=== PATIENT | male | born 2000 | race African-American/Black ===

== ENCOUNTER 2021-08-12 11:57 | Emergency (ER) | payer BC, SELFPAY ==
--- NOTE | ~2021-08-12 | XR_ITS ---
EXAMINATION: XR shoulder RT min 2V INDICATION: Right shoulder pain TECHNIQUE: Four views of the right shoulder are submitted. COMPARISON: None FINDINGS: Normal alignment. No fracture. Glenohumeral and acromioclavicular joint spaces are normal. Soft tissues are unremarkable. IMPRESSION: 1. No acute osseous abnormality. Reviewed, dictated and finalized at location A.
[2021-08-12 12:04] VITALS: BP 142/87; PULSE 100; RESP 18; TEMP 36.7; O2SAT 100
--- NOTE | 2021-08-12 12:20 | PC.NURSE ---
Pt states he fell off the couch yesterday and dislocated his shoulder pt, states he attempted to pop it back into place, pt able to ambulate well, A&Ox4
--- NOTE | 2021-08-12 12:45 | ED.UPPEXIN ---
HPI - Extremity Injury (Upper) General Chief Complaint: Extremity Injury, Upper Stated Complaint: possible dislocated shouler Time Seen by Provider: 08/12/21 12:19 Source: patient Mode of arrival: ambulatory Limitations: no limitations History of Present Illness HPI narrative: Patient is a 20-year-old male complaining of right shoulder pain, I dislocated my shoulder , after he fell over trying to reach over for his cat. Patient states that he has a history of shoulder dislocation in the past. Patient denies any other pain or injury. Review of Systems Review of Systems: All systems reviewed & are unremarkable except as noted in HPI and below Constitutional: Constitutional: Denies body ache(s), Denies chills, Denies excessive sweating, Denies fatigue, Denies fever(s), Denies headache(s), Denies lethargy, Denies malaise, Denies weakness and Denies weight loss Eyes: Eyes: Denies blurry vision, Denies change in vision and Denies loss of vision ENT: Denies dizziness, Denies ear discharge, Denies headache(s), Denies lip swelling, Denies epistaxis, Denies nasal congestion, Denies neck pain, Denies throat swelling and Denies tongue swelling Cardiovascular: Cardiovascular: Denies chest pain, Denies chest pain at rest, Denies chest pain with activity, Denies diaphoresis, Denies rapid heart rate, Denies edema, Denies irregular heart rhythm, Denies lightheadedness, Denies palpitations, Denies dyspnea and Denies dyspnea on exertion Respiratory: Respiratory: Denies chest congestion, Denies cough, Denies hemoptysis, Denies dyspnea and Denies dyspnea on exertion Gastrointestinal: Gastrointestinal: Denies abdominal pain, Denies melena, Denies hematochezia, Denies diarrhea, Denies nausea, Denies vomiting and Denies hematemesis Musculoskeletal: Musculoskeletal: Denies abnormal gait, Denies deformity, Denies neck pain and Denies numbness Neurologic: Denies Abnormal speech present, Denies abnormal gait, Denies confusion, Denies dizziness, Denies headache(s), Denies focal weakness, Denies loss of vision, Denies numbness, Denies Other visual disturbances, Denies Sensory deficit (Neuro) and Denies weakness Psychiatric: Psychiatric: Denies confusion, Denies depression, Denies auditory hallucinations, Denies homicidal ideation and Denies suicidal ideation Endocrine: Endocrine: Denies cold intolerance, Denies excessive sweating, Denies fatigue, Denies heat intolerance and Denies palpitations Hematologic/Lymphatic: Hematologic/Lymphatic: Denies easy bleeding and Denies easy bruising Allergic/Immunologic: Allergic/Immunologic: Denies lip swelling, Denies throat swelling and Denies tongue swelling PMFSH Comments Past medical history: Shoulder dislocation Family history: None Social history: Non-smoker, occasional EtOH use, no drug use Exam Const: General: cooperative, healthy appearing, comfortable, no acute distress, well developed, alert and awake; No confusion Orientation/consciousness: oriented to person, oriented to place, oriented to time, patient oriented x3 and No confusion Limitations: no limitations HENMT: Head: normal to inspection, normocephalic and atraumatic Ears: hearing grossly normal bilaterally, TM normal on the right and TM normal on the left General nose exam: Normal external nose present, Normal nares present and No nasal discharge present Face and sinus: normal facial exam Mouth: Yes Normal oral and palatal mucosa present, Yes lip normal, Yes tongue normal and Yes oropharynx normal Throat: posterior oropharynx normal, tonsils normal and uvula midline Eyes: General: appearance normal, both eyes and all related structures Pupils: Equal, round and reactive pupils present EOM: EOMs intact bilaterally Neck: Neck: normal visual inspection, full ROM, no lymphadenopathy and no meningeal signs Chest: Chest palpation & inspection: normal inspection of the chest Resp: Effort & Inspection: normal respiratory effort, able to speak in complete sent
[2021-08-12 12:47] LABS: Basophils Percent Auto 0.3 % (0.2-1.2); Eosinophils Percent Auto 0.6 % (0-4.4); Hematocrit 43.6 % (42.0-52.0); Hemoglobin 14.8 g/dL (14.0-18.0); Immature Granulocyte Absolute 0.01 K/mm3 (0.00-0.031); Immature Granulocyte Percent A 0.1 % (0-0.5); Lymphocytes Absolute Auto 1.77 K/mm3 (0.9-3.2); Lymphocytes Percent Auto 24.3 % (18.3-44.2); Mean Corpuscular HGB Conc 33.9 g/dl (32-36); Mean Corpuscular Hemoglobin 31.2 pg (26-34); Mean Corpuscular Volume 91.8 fl (80-100); Mean Platelet Volume 10.4 fl (7.4-10.4); Monocytes Absolute Auto 0.6 K/mm3 (0.1-0.6); Monocytes Percent Auto 8.5 % (2.6-8.5); Neutrophils Absolute Auto 4.8 K/mm3 (1.3-6.7); Neutrophils Percent Auto 66.2 % (45.5-73.1); Platelet Count Result 362 k/mm3 (150-375); Red Blood Count 4.75 M/mm3 (4.6-6.20); Red Cell Distribution Width 14.5 % (11.5-14.5); White Blood Count 7.3 K/mm3 (4.5-10.0)
[2021-08-12 13:07] LABS: Alanine Aminotransferase 22 U/L (4-50); Alkaline Phosphatase 44 U/L (38-126); Anion Gap 12 mmol/L (8-16); Aspartate Amino Transferase 29 U/L (17-59); Blood Urea Nitrogen 6 mg/dL (9-20); Calcium 9.8 mg/dL (8.4-10.2); Carbon Dioxide 24 mmol/L (22-30); Chloride 104 mmol/L (98-107); Estimated CRCL calculation 156 ml/min; Estimated Glomerular Filt Rate > 60; Glucose 110 mg/dL (65-110); Potassium 3.7 mmol/L (3.4-5.0); Sodium 140 mmol/L (137-145)
--- NOTE | 2021-08-12 13:30 | PC.NURSE ---
Pt ready for discharge educated on results, pt states he is ready for discharge, no acute distress at this time, ambulated well
[2021-08-12 13:31] VITALS: BP 120/88; PULSE 88; RESP 16; O2SAT 100
[2021-08-12 13:31] LABS: Add Urine Microscopic? NO; Appearance Urine Clear (Clear); Bilirubin Urine Negative (Negative); Blood Urine Negative (Negative); Color Urine Yellow (Yellow); Glucose Urine UA Negative (Negative); Ketones Urine Negative (Negative); Leukocyte Esterase Ur Negative LEU/UL (Negative); Nitrate Urine Negative (Negative); Protein Urine Negative (Negative); Urobilinogen Urine Negative mg/dL (<2.0)
--- NOTE | 2021-08-12 13:45 | PC.NURSE ---
Pt wanted to speak with MD again before leaving, doctor educated pt on his injury, MD stated he will provide pt with a sling for support, splint applied, pt feels he has better support
== END 2021-08-12 13:48 | disposition home or self-care (01) ==
PROVIDERS: General Practice; Emergency Provider Emergency Medicine
DX: S46.911A Strain of unspecified muscle, fascia and tendon at shoulder and upper arm level, right arm, initial encounter (principal); W08.XXXA Fall from other furniture, initial encounter
CPT/HCPCS: 36415; 73030; 80053; 81003; 85025; 99283; A4565

== ENCOUNTER 2025-05-11 14:01 | Emergency (ER) | payer BC, SELFPAY ==
--- NOTE | 2025-05-11 14:04 | ED_ITS ---
<Statement entered by Juanjo Rosas, EP SPECIALIST - 05/11/25 14:23> not evaluated at [facility]. Thought this was an ER. HPI - General Adult General Chief complaint: Chest Pain Stated complaint: Chest Pressure/Palpitations Time Seen by Provider: 05/11/25 14:03 Medical Decision Making MDM Narrative Medical decision making narrative: [facility] He thought [facility] was the [facility]. He [facility] Exited facility without exam. Discharge Plan Discharge Patient Language: Turkish Follow-up/Referrals: UNKNOWN,DOCTOR [Non-Staff] -
--- NOTE | 2025-05-11 14:04 | ED.GENADULT ---
HPI - General Adult General Chief complaint: Chest Pain Stated complaint: Chest Pressure/Palpitations Time Seen by Provider: 05/11/25 14:03 Medical Decision Making MDM Narrative Medical decision making narrative: Pt [facility] at [facility]. He thought this was the ER. He did not want to be evaluated at this [facility]. Exited facility without exam. Discharge Plan Discharge Patient Language: Welsh Follow-up/Referrals: UNKNOWN,DOCTOR [Non-Staff] -
--- NOTE | 2025-05-11 14:33 | PC.NURSE ---
Pt left WOBS. Pt did not want to be seen here. States he was just seen at 1:30p.m. today at [facility] and they informed him to get established with A PCP or go to ER if he had any other concerns. Pt states he thought we were a hospital and he wanted to see a primary Dr. for bloodwork. Pt showed me his DC papers from [facility] with prescribed meds.
== END 2025-05-11 14:33 | disposition left against medical advice (07) ==
DX: Z53.21 Procedure and treatment not carried out due to patient leaving prior to being seen by health care provider (principal)
CPT/HCPCS: 99199

== ENCOUNTER 2025-05-14 12:21 | Emergency (ER) | payer BC, SELFPAY ==
[2025-05-14] VITALS (11 sets, daily range): BP systolic 120–169; BP diastolic 80–100; PULSE 69–98; RESP 14–24; TEMP 36.5–36.9; O2SAT 95–100
--- NOTE | ~2025-05-14 | XR_ITS ---
CHEST RADIOGRAPH, PA AND LATERAL CLINICAL HISTORY: chest pain . COMPARISON: None available TECHNIQUE: PA and lateral views of the chest. FINDINGS The cardiomediastinal silhouette is unremarkable. The lungs are clear. IMPRESSION: No focal infiltrate or effusion. Reviewed, dictated and finalized at location A.
--- NOTE | 2025-05-14 12:24 | ECG_ITS ---
Test Date: 2025-05-14 15:28:28 Measurements Intervals [place] Rate: 77 P: 62 CT: 149 QRS: 17 QRSD: 91 T: 31 QT: 361 QTc: 410 Interpretive Statements SINUS RHYTHM LOW QRS VOLTAGE IN PRECORDIAL LEADS [QRS DEFLECTION < 1.0 mV IN CHEST LEADS] Compared to ECG 05/14/2025 12:31:42 NO SIGNIFICANT CHANGES Electronically Signed On 05-15-2025 14:13:20 CDT by Yon Charles M.D.
[2025-05-14 12:55] LABS: Hematocrit 46.0 % (42.0-52.0); Hemoglobin 15.3 g/dL (14.0-18.0); Immature Granulocyte Percent A 0.6 % (0-0.5); Lymphocytes Absolute Auto 2.25 K/mm3 (0.9-3.2); Mean Corpuscular HGB Conc 33.3 g/dl (32-36); Mean Corpuscular Hemoglobin 29.8 pg (26-34); Mean Corpuscular Volume 89.7 fl (80-100); Nucleated Red Blood Cells Absolute Auto 0.000 K/mm3 (0.0-0.012); Nucleated Red Blood Cells Perc 0.0 % (0.0-0.2); Platelet Count Result 439 k/mm3 (150-375); Red Blood Count 5.13 M/mm3 (4.6-6.20); White Blood Count 7.1 K/mm3 (4.5-10.0)
--- NOTE | 2025-05-14 12:59 | ED.CHESTPAIN ---
HPI - Chest Pain General Chief Complaint: Chest Pain Stated Complaint: Chest Tightness Time Seen by Provider: 05/14/25 12:35 Source: patient, RN notes reviewed and old records reviewed Mode of arrival: ambulatory Limitations: no limitations History of Present Illness HPI narrative: This is a 24 year old male who presents for evaluation of chest tightness. He states that for past several weeks he has had intermittent chest tightness. He thinks his tightness occurs after eating food with sodium in it and pastries. He denies having chest tightness now. He also reports his heart rate will slightly elevated. He denies associated fever, chills, cough, shortness of breath. His tightness rocael not radiate. Related Data Allergies Allergy/AdvReac Type Severity Reaction Status Date / Time No Known Allergies Allergy Verified 05/14/25 12:41 PMFSH Past Medical History Medical History (Updated 05/14/25 @ 16:35 by Ally Noel MD) Patient denies medical problems Surgical History Surgical History (Updated 05/14/25 @ 13:04 by Ally Noel MD) No pertinent past surgical history Social History Social History (Updated 05/14/25 @ 13:04 by Ally Noel MD) Smoking status: Never smoker Exam Const: General: no acute distress and alert Nutritional Appearance: well nourished and obese Orientation/consciousness: patient oriented x3 HENMT: Head: normal to inspection Eyes: EOM: EOMs intact bilaterally Chest: Chest palpation & inspection: normal inspection of the chest Resp: Effort & Inspection: normal respiratory effort Auscultation: clear to auscultation bilaterally Cardio: Rate: regular rate Rhythm: regular rhythm Heart sounds: no murmurs GI: GI Palp: Yes Soft to palpation, No Tenderness to palpation present (GI), No Guarding due to palpation present (GI) and No Rigid due to palpation Auscultation: normal bowel sounds Skin: General skin exam: normal color Neuro: General: patient oriented x3 and moves all extremities Extrem: General: normal to inspection Psych: Mental Status: mental status grossly normal Affect: normal affect Course Reevaluation(s) Reevaluation #1: I reviewed with patient that troponin and d dimer are negative. He will need to follow up with PCP Date: 05/14/25 Time: 16:33 Vital Signs Vital signs: Vital Signs Temperature 98.4 F 05/14/25 12:38 Pulse Rate 98 05/14/25 12:38 Respiratory Rate 16 05/14/25 12:38 Blood Pressure 154/100 H 05/14/25 12:38 Pulse Oximetry 100 05/14/25 12:38 Oxygen Delivery Room Air 05/14/25 12:38 Temperature 97.9 F 05/14/25 16:16 Pulse Rate 74 05/14/25 16:31 Respiratory Rate 24 H 05/14/25 16:31 Blood Pressure 136/83 05/14/25 16:31 Pulse Oximetry 100 05/14/25 16:31 Oxygen Delivery Room Air 05/14/25 12:38 MDM - Chest Pain Differential Diagnosis Differential diagnosis: Likely pneumothorax, stable angina, atypical chest pain, costochondritis, chest pain and other (PE) Medical Records Data Attestation: I reviewed the patient's medical records. Lab Data Attestation: I reviewed the patient's lab results. 05/14/25 12:50 05/14/25 12:50 Labs: Lab Results 05/14/25 05/14/25 Range/Units 12:50 15:38 WBC 7.1 (4.5-10.0) K/mm3 RBC 5.13 (4.6-6.20) M/mm3 Hgb 15.3 (14.0-18.0) g/dL Hct 46.0 (42.0-52.0) % MCV 89.7 (80-100) fl MCH 29.8 (26-34) pg MCHC 33.3 (32-36) g/dl RDW 13.6 (11.5-14.5) % Plt Count 439 H (150-375) k/mm3 MPV 9.4 (7.4-10.4) fl Immature Gran % (Auto) 0.6 H (0-0.5) % Neut % (Auto) 54.7 (45.5-73.1) % Lymph % (Auto) 31.8 (18.3-44.2) % Hendry % (Auto) 10.2 H (2.6-8.5) % Eos % (Auto) 2.4 (0-4.4) % Baso % (Auto) 0.3 (0.2-1.2) % Lymph # (Auto) 2.25 (0.9-3.2) K/mm3 Hendry # (Auto) 0.7 H (0.1-0.6) K/mm3 Eos # (Auto) 0.2 (0-0.3) K/mm3 Baso # (Auto) 0.0 (0.0-0.1) K/mm3 Abs Immat Gran (auto) 0.04 H (0.00-0.031) K/mm3 Absolute Neuts (auto) 3.9 (1.3-6.7) K/mm3 Absolute Nucleated RBC 0.000 (0.0-0.012) K/mm3 Nucleated RBC % 0.0 (0.0-0.2) % PT 13.1 (11.1-14.7) Seconds INR 1.0 APTT 28.5 (22.3-36.8) Seconds D-Dimer < 0.27 (<0.48) ug/mL Sodium 137 (137-145) mmol/L Potassium 3.9 (3.4-5.0) mmol/L Chloride 103 (98-107) mmol/L Carbon Dioxide 26 (22-30) mmol/L Anion Gap 8 (4-12) mmol/L BUN 14 D (9-20) mg/dL Creatinine 0.92 (0.7-1.3) mg/dL Estim Creat Clear Calc 135 ml/min Estimated GFR > 60 (59 - ) Glucose 100 (65-110) mg/dL Calcium 9.2 (8.4-10.2) mg/dL Magnesium 2.0 (1.6-2.3) mg/dL Total Bilirubin 0.9 (0.2-1.3) mg/dL AST 45 (17-59) U/L ALT 40 (6-50) U/L Alkaline Phosphatase 60 (38-126) U/L Troponin I < 0.012 0.013 (0.000-0.034) ng/mL Total Protein 8.6 H (6.3-8.2) g/dL Albumin 4.8 (3.5-5.1) g/dL Lipase 58 (23-300) U/L Imaging Data Radiologist's impression: ITS Impressions Chest X-Ray 05/14/25 13:41 IMPRESSION: No focal infiltrate or effusion. ECG Data EKG #1: Attestation: I personally reviewed and interpreted this ECG as follows: ECG completion date: 05/14/25 ECG completion time: 15:28 EKG Interpretation: normal rate, sinus rhythm, no ST changes and NL axis Discharge Plan Discharge Clinical Impression: Atypical chest pain Patient Disposition: Home Condition: Stable Instructions: Chest Pain (ED) Patient Language: Kiswahili Follow-up/Referrals: PHYSICIAN,INTERNET CAFE MANAGER [Primary Care Provider] - Quality HEART score for chest pain patients History: slightly suspicious ECG: normal Age: < or = to 45 years Risk factors: 1 or 2 risk factors Troponin: < or = to 1x normal limit Heart score: 1
[2025-05-14 13:05] LABS: INR 1.0; Prothrombin Time 13.1 Seconds (11.1-14.7)
[2025-05-14 13:06] LABS: Partial Thromboplastin Time 28.5 Seconds (22.3-36.8)
[2025-05-14 13:16] LABS: Magnesium 2.0 mg/dL (1.6-2.3)
[2025-05-14 13:17] LABS: Alanine Aminotransferase 40 U/L (6-50); Albumin Level 4.8 g/dL (3.5-5.1); Alkaline Phosphatase 60 U/L (38-126); Anion Gap 8 mmol/L (4-12); Aspartate Amino Transferase 45 U/L (17-59); Bilirubin,Total 0.9 mg/dL (0.2-1.3); Blood Urea Nitrogen 14 mg/dL (9-20); Calcium 9.2 mg/dL (8.4-10.2); Carbon Dioxide 26 mmol/L (22-30); Chloride 103 mmol/L (98-107); Estimated CRCL calculation 135 ml/min; Estimated Glomerular Filt Rate > 60; Glucose 100 mg/dL (65-110); Lipase 58 U/L (23-300); Potassium 3.9 mmol/L (3.4-5.0); Sodium 137 mmol/L (137-145); Total Protein 8.6 g/dL (6.3-8.2)
[2025-05-14 13:28] LABS: Troponin I < 0.012 ng/mL (0.000-0.034)
--- NOTE | 2025-05-14 15:49 | ECG_ITS ---
Test Date: 2025-05-14 12:31:42 Measurements Intervals [place] Rate: 104 P: 57 NM: 132 QRS: -1 QRSD: 85 T: 30 QT: 326 QTc: 429 Interpretive Statements SINUS TACHYCARDIA POOR R-WAVE PROGRESSION No previous ECG available for comparison Electronically Signed On 05-15-2025 14:10:00 CDT by Yon Charles M.D.
[2025-05-14 16:29] LABS: Troponin I 0.013 ng/mL (0.000-0.034)
== END 2025-05-14 17:00 | disposition home or self-care (01) ==
PROVIDERS: Emergency Medicine; Emergency Provider General Practice
DX: R07.89 Other chest pain (principal)
CPT/HCPCS: 36415; 71046; 80053; 83690; 83735; 84484; 85025; 85380; 85610; 85730; 93005; 99284